=== PATIENT | male | born 1980 | race African-American/Black ===

== ENCOUNTER 2024-07-21 03:52 | Emergency (ER) | payer SELFPAY ==
[~2024-07-21] VITALS: Ht 185.4 cm; Wt 95.0 kg
[2024-07-21 03:57] VITALS: BP 106/66; PULSE 98; RESP 16; TEMP 37.7; O2SAT 98
[2024-07-21 04:31] VITALS: O2SAT 96
[2024-07-21] MEDS: ACETAMINOPHEN 325MG TABLET PO ONE (04:34)
[2024-07-21] MEDS ORDERED: ALBU18HF2 IH (04:50)
[2024-07-21] MEDS ORDERED: PRED5TAB48 MT (05:07)
== END 2024-07-21 05:09 | disposition home or self-care (01) ==
LOC: ER 03:52
DX: J06.9 Acute upper respiratory infection, unspecified (principal); B97.89 Other viral agents as the cause of diseases classified elsewhere; Z79.899 Other long term (current) drug therapy
CPT/HCPCS: 71045; 99283